=== PATIENT | male | born 1970 | race Caucasian/White ===

== ENCOUNTER 2017-07-07 16:04 | Inpatient (IN) | payer OTHER ==
[~2017-07-07] VITALS: Ht 180.3 cm; Wt 71.7 kg
[2017-07-07] MEDS ORDERED: SODIUM CHLORIDE 0.9% 1,000 ML IV ONE (16:21)
[2017-07-07] MEDS ORDERED: SODIUM CHLORIDE 0.9% 1000ML BAG (SEPSIS BOLUS) IV ONE (16:30)
[2017-07-07] MEDS ORDERED: VANCOMYCIN 1 G PREMIX 200 ML IV ONE (16:30)
[2017-07-07] MEDS ORDERED: HALOPERIDOL LACTATE 5MG/ML VIAL IM ONE (16:30)
[2017-07-07] MEDS ORDERED: LORAZEPAM 2MG/ML CPJ IM ONE (16:30)
[2017-07-07] MEDS ORDERED: CEFTRIAXONE 1 G PREMIX 50 ML IV ONE (16:30)
[2017-07-07] MEDS ORDERED: TETANUS, DIPHTHERIA, PERTUSSIS VAC/PF 0.5ML (>7YR OLD) IM ONE (16:30)
[2017-07-07 17:08] LABS: BG CARBOXYHEMOGLOBIN 0.7 % (0.5-1.5); BG FRACTION INSPIRED OXYGEN 99.9; BG HCO3 ACT 15.3 mmol/L (22.0-26.0); BG METHEMOGLOBIN 0.4 % (0.0-1.5); BG OXYGEN SATURATION 90.9 % (92.0-98.5); BG OXYHEMOGLOBIN 89.9 % (94.0-97.0); BG PCO2 18.5 mmHg (35.0-45.0); BG PH 7.535 (7.350-7.450); BG PO2 53.2 mmHg (75.0-100.0); BG SAMPLE SITE RIGHT RADIAL; BG TOTAL HEMOGLOBIN 16.6 g/dL (12.0-18.0); BG VENT MODE MASK - NRB
[2017-07-07] MEDS ORDERED: ACETAMINOPHEN 650MG SUPP PR ONE (17:15)
[2017-07-07] MEDS ORDERED: LORAZEPAM 2MG/ML CPJ IV ONE ×3 (17:15→19:45)
[2017-07-07 17:18] LABS: BASOPHILS % 0.6 % (0.0-2.0); HEMATOCRIT. 44.5 % (42.0-52.0); HEMOGLOBIN. 15.3 g/dL (14.0-18.0); INR 1.2; LYMPHOCYTES % 8.1 % (20.0-50.0); MEAN CORPUSCULAR HEMOGLOBIN 32.2 pg (28.0-32.0); MEAN CORPUSCULAR VOLUME 93.9 fL (80.0-94.0); MEAN PLATELET VOLUME 8.5 fl (7.4-10.4); MONOCYTES % 6.7 % (2.0-8.0); NEUTROPHILS % 84.6 % (40.0-76.0); PARTIAL THROMBOPLASTIN TIME 26.4 sec (23.4-31.0); PLATELET 244 x1000/uL (130-400); PROTHROMBIN TIME 12.1 sec (9.4-11.6); RED BLOOD CELL COUNT 4.74 mill/uL (4.7-6.1); RED CELL DISTRIBUTION WIDTH 14.7 % (11.6-14.6)
[2017-07-07 17:27] LABS: CARBON DIOXIDE 16 mEq/L (21-32); CHLORIDE 104 mEq/L (98-107); CREATINE KINASE 970 IU/L (39-308); ETHANOL BLOOD < 10 mg/dL; TROPONIN I < 0.02 ng/mL (0.00-0.04)
[2017-07-07 17:50] LABS: CLARITY URINE CLEAR (CLEAR); COLOR URINE YELLOW (YELLOW); GLUCOSE URINE NEGATIVE (NEGATIVE); KETONES URINE 1+ (NEGATIVE); LEUKOCYTE ESTERASE URINE NEGATIVE (NEGATIVE); NITRITE URINE NEGATIVE (NEGATIVE); OCCULT BLOOD URINE 2+ (NEGATIVE); PROTEIN URINE 2+ (NEGATIVE)
[2017-07-07 18:11] LABS: *AMPHETAMINES SCREEN URINE PRESUMTIVE POSITIVE (NEGATIVE); *BARBITURATES SCREEN URINE NEGATIVE (NEGATIVE); *BENZODIAZEPINES SCREEN URINE NEGATIVE (NEGATIVE); *COCAINE SCREEN URINE NEGATIVE (NEGATIVE); CANNABINOID URINE SCREEN NEGATIVE (NEGATIVE); METHADONE URINE SCREEN NEGATIVE (NEGATIVE); OPIATES URINE SCREEN NEGATIVE (NEGATIVE); PHENCYCLIDINE URINE SCREEN NEGATIVE (NEGATIVE)
[2017-07-07] MEDS ORDERED: IOHEXOL-300 100 ML BOTTLE ONE (20:37)
[2017-07-07] MEDS ORDERED: ACETAMINOPHEN 325MG TABLET PO PRN (20:45)
[2017-07-07] MEDS ORDERED: LORAZEPAM 2MG/ML CPJ IV PRN (20:45)
[2017-07-07] MEDS ORDERED: VANCOMYCIN 1 G PREMIX 200 ML IV SCH (20:45)
[2017-07-07] MEDS ORDERED: ONDANSETRON HCL 4MG/2ML VIAL IV PRN (20:45)
[2017-07-07] MEDS ORDERED: IPRATROPIUM/ALBUTEROL 0.5-3(2.5)MG/3ML NEB INH PRN (20:45)
[2017-07-07] MEDS ORDERED: DOCUSATE SODIUM 100MG CAPSULE PO PRN (20:45)
[2017-07-07] MEDS ORDERED: NITROGLYCERIN 0.4MG TABLET SL SL PRN (20:45)
[2017-07-07] MEDS ORDERED: GUAIFENESIN 200MG/10ML SUGAR FREE UDC PO PRN (20:45)
[2017-07-07] MEDS ORDERED: HALOPERIDOL LACTATE 5MG/ML VIAL IM PRN (20:45)
[2017-07-07] MEDS ORDERED: CLONIDINE 0.1MG TABLET PO PRN (20:45)
[2017-07-07] MEDS ORDERED: DIPHENHYDRAMINE 50MG/ML VIAL IV PRN (20:45)
[2017-07-07] MEDS ORDERED: KETOROLAC 15MG/ML VIAL IV PRN (20:45)
[2017-07-07] MEDS ORDERED: MAGNESIUM/ALUMINUM HYDROXIDE/SIMETHICONE 30ML UDC PO PRN (20:45)
[2017-07-07] MEDS ORDERED: NA PHOS,M-B/NA PHOS,DI-BA ENEMA 118ML PR PRN (20:45)
[2017-07-08] VITALS (56 sets, daily range): BP systolic 109–135; BP diastolic 51–92
[2017-07-08] MEDS ORDERED: ZOLPIDEM TARTRATE 5MG TABLET PO PRN (03:01)
[2017-07-08] MEDS: SODIUM CHLORIDE 0.9% 1,000 ML IV SCH ×2 (03:50→12:05)
[2017-07-08] MEDS: PIPERACILLIN/TAZ 3.375G PREMIX 50 ML IV SCH ×3 (04:16→21:19)
[2017-07-08] MEDS ORDERED: VANCOMYCIN 1 G PREMIX 200 ML IV SCH (06:00)
[2017-07-08] MEDS: FAMOTIDINE 20MG/2ML VIAL IV SCH ×2 (09:14→20:21)
[2017-07-08] MEDS ORDERED: VANCOMYCIN 1250MG in DEXTROSE 5% WATER 250ML IV SCH ×2 (11:45→18:00)
[2017-07-09] VITALS (13 sets, daily range): BP systolic 103–122; BP diastolic 67–78
[2017-07-09] MEDS: PIPERACILLIN/TAZ 3.375G PREMIX 50 ML IV SCH (04:22)
[2017-07-09] MEDS: FAMOTIDINE 20MG/2ML VIAL IV SCH (08:04)
== END 2017-07-09 11:30 | disposition home or self-care (01) | DRG 917 ==
LOC: ER 16:42 → EDBD 18:38 → CVICU 18:38 → EDBEDREQSVC 18:41 → EDBEDREQ 18:41 → ENRESERV 23:07
PROVIDERS: ADMIT Internal Medicine; ATTEND Internal Medicine
DX: T50.901A Poisoning by unspecified drugs, medicaments and biological substances, accidental (unintentional), initial encounter (principal); G92 Toxic encephalopathy; E87.4 Mixed disorder of acid-base balance; M62.82 Rhabdomyolysis; E44.1 Mild protein-calorie malnutrition; Z78.1 Physical restraint status; L03.114 Cellulitis of left upper limb; L02.413 Cutaneous abscess of right upper limb; F15.10 Other stimulant abuse, uncomplicated; Y92.89 Other specified places as the place of occurrence of the external cause
CPT/HCPCS: 36415; 36600; 70450; 71010; 80053; 80305; 81001; 82375; 82550; 82805; 82962; 83605; 83880; 84484; 85025; 85610; 85730; 86850; 86900; 87040; 87070; 87077; 87086; 87186; 87205; 90715; 93005; 93970; 96365; 99291; G0482; J0696; J1630; J1885; J2060; J2543; J3370; J3490; J7030; J7060; Q9967; A4315